=== PATIENT | female | born 1990 | race American Indian/Alaskan Native ===

== ENCOUNTER 2017-11-03 04:09 | Emergency (ER) | payer BC, MEDICAID ==
[~2017-11-03] VITALS: Ht 154.9 cm; Wt 72.7 kg
[2017-11-03] MEDS ORDERED: ibuprofen tablet 400 MG TABLET PO ONE (05:20)
[2017-11-03] MEDS ORDERED: LORA-269 PO (05:23)
[2017-11-03] MEDS ORDERED: IBUP-1984 PO (05:23)
[2017-11-03 05:34] VITALS: BP 115/60
[2017-11-10] MEDS ORDERED: FAMO-128 PO (01:20)
== END 2017-11-03 05:46 | disposition home or self-care (01) ==
LOC: ER 04:10
DX: R07.89 Other chest pain (principal); F41.9 Anxiety disorder, unspecified; E78.00 Pure hypercholesterolemia, unspecified; F17.210 Nicotine dependence, cigarettes, uncomplicated
CPT/HCPCS: 71045; 93005; 99284

== ENCOUNTER 2018-03-27 14:45 | Emergency (ER) | payer MEDICAID ==
[~2018-03-27] VITALS: Ht 154.9 cm; Wt 74.5 kg
[~2018-03-27 14:45] MED LIST: FAMO-128 PO; LORA-269 PO
[2018-03-27 15:10] LABS: BASOPHILS % (AUTO) 0.5 % (0-1); EOSINOPHILS # (AUTO) 0.1 X10'3 (0-0.9); EOSINOPHILS % (AUTO) 1.1 % (0-6); HEMATOCRIT 37.5 % (35.0-45.0); LYMPHOCYTES # (AUTO) 2.7 X10'3 (1.1-4.8); LYMPHOCYTES % (AUTO) 33.1 % (21-51); MEAN CORPUSCULAR HEMOGLOBIN 30.3 PG (27.0-31.0); MEAN CORPUSCULAR HGB CONC 34.8 % (33.0-36.5); MEAN CORPUSCULAR VOLUME 87.1 FL (78-98); MEAN PLATELET VOLUME 8.5 FL (7.4-10.4); MONOCYTES # (AUTO) 0.5 X10'3 (0-0.9); MONOCYTES % (AUTO) 5.6 % (2-12); NEUTROPHILS # (AUTO) 4.9 X10'3 (1.8-7.7); NEUTROPHILS % (AUTO) 59.7 % (42-75); PLATELET COUNT 264 X10'3 (140-440); RED BLOOD COUNT 4.31 X10'6 (4.20-5.60); RED CELL DISTRIBUTION WIDTH 12.3 % (11.5-14.5); WHITE BLOOD COUNT 8.2 X10'3 (4.5-11.0)
[2018-03-27 15:20] LABS: INR 0.9 INR; PROTHROMBIN TIME 9.8 SECONDS (9.0-12.0)
[2018-03-27 15:22] LABS: URINE HCG NEGATIVE (NEG)
[2018-03-27 15:25] LABS: ALANINE AMINOTRANSFERASE 41 U/L (12-78); ALBUMIN 4.4 G/DL (3.4-5.0); ALBUMIN/GLOBULIN RATIO 1.3 (1.1-1.5); ALKALINE PHOSPHATASE 89 IU/L (46-116); ANION GAP 11 (8-16); ASPARTATE AMINO TRANSFERASE 18 U/L (10-37); BILIRUBIN,TOTAL 0.2 MG/DL (0.1-1.0); BLOOD UREA NITROGEN 17 MG/DL (7-18); BUN/CREATININE RATIO 18.7 (6.6-38.0); CALCIUM 8.8 MG/DL (8.5-10.1); CHLORIDE 104 MMOL/L (99-107); CREATININE 0.91 MG/DL (0.40-0.90); GLUCOSE 109 MG/DL (70-104); POTASSIUM 4.1 MMOL/L (3.5-5.1); SODIUM 137 MMOL/L (135-145); TOTAL CARBON DIOXIDE 22.2 MMOL/L (24-32); TOTAL PROTEIN 7.8 G/DL (6.4-8.2); eGFR 74 ML/MIN
[2018-03-27 15:25] LABS: CLARITY,URINE CLEAR (Clear); COLOR,URINE YELLOW (Yellow); GLUCOSE, URINE NEGATIVE (Neg); KETONES,URINE NEGATIVE (Neg); LEUKOCYTE ESTERASE ,URINE NEGATIVE (Neg); NITRITES, URINE NEGATIVE (Neg); OCCULT BLOOD,URINE TRACE-LYSED (Neg); PROTEIN,URINE NEGATIVE (Neg); UROBILINOGEN,URINE 0.2 E.U/dL (0.2-1.0)
[2018-03-27 15:29] LABS: UA COLLECTION TYPE CLN CATCH MIDSTREAM
[2018-03-27 15:30] LABS: BACTERIA,URINE NONE SEEN /HPF (Neg); MUCUS STRANDS FEW /LPF (Neg); SQUAMOUS EPITHELIAL CELL,UR FEW /LPF (FEW); WBC,URINE NONE SEEN /HPF (0-4)
[2018-03-27 16:00] VITALS: BP 118/60
== END 2018-03-27 16:13 | disposition home or self-care (01) ==
LOC: ER 14:46
DX: R10.30 Lower abdominal pain, unspecified (principal); E78.00 Pure hypercholesterolemia, unspecified; Z90.89 Acquired absence of other organs
CPT/HCPCS: 36415; 80053; 81001; 81025; 85025; 85610; 99284

== ENCOUNTER 2019-01-12 01:31 | Emergency (ER) | payer MEDICAID ==
[~2019-01-12] VITALS: Ht 154.9 cm; Wt 62.0 kg
[2019-01-12 02:02] LABS: CLARITY,URINE CLEAR (Clear); COLOR,URINE YELLOW (Yellow); GLUCOSE, URINE NEGATIVE (Neg); KETONES,URINE NEGATIVE (Neg); LEUKOCYTE ESTERASE ,URINE NEGATIVE (Neg); NITRITES, URINE NEGATIVE (Neg); OCCULT BLOOD,URINE NEGATIVE (Neg); PROTEIN,URINE NEGATIVE (Neg); URINE HCG NEGATIVE (NEG); UROBILINOGEN,URINE 0.2 E.U/dL (0.2-1.0)
[2019-01-12 02:04] LABS: UA COLLECTION TYPE CLN CATCH MIDSTREAM
[2019-01-12 02:05] LABS: BASOPHILS # (AUTO) 0.1 X10'3 (0-0.2); BASOPHILS % (AUTO) 0.6 % (0-1); EOSINOPHILS # (AUTO) 0.1 X10'3 (0-0.9); EOSINOPHILS % (AUTO) 1.1 % (0-6); HEMATOCRIT 34.7 % (35.0-45.0); LYMPHOCYTES # (AUTO) 4.3 X10'3 (1.1-4.8); LYMPHOCYTES % (AUTO) 43.7 % (21-51); MEAN CORPUSCULAR HEMOGLOBIN 30.6 PG (27.0-31.0); MEAN CORPUSCULAR HGB CONC 34.5 g/dL (33.0-36.5); MEAN CORPUSCULAR VOLUME 88.8 FL (78-98); MEAN PLATELET VOLUME 9.3 FL (7.4-10.4); MONOCYTES # (AUTO) 0.7 X10'3 (0-0.9); MONOCYTES % (AUTO) 6.7 % (2-12); NEUTROPHILS # (AUTO) 4.7 X10'3 (1.8-7.7); NEUTROPHILS % (AUTO) 47.9 % (42-75); PLATELET COUNT 258 X10'3 (140-440); RED BLOOD COUNT 3.91 X10'6 (4.20-5.60); RED CELL DISTRIBUTION WIDTH 12.7 % (11.5-14.5); WHITE BLOOD COUNT 9.9 X10'3 (4.5-11.0)
[2019-01-12 02:16] LABS: ALANINE AMINOTRANSFERASE 37 U/L (12-78); ALBUMIN 4.3 G/DL (3.4-5.0); ALBUMIN/GLOBULIN RATIO 1.3 (1.1-1.5); ALKALINE PHOSPHATASE 97 IU/L (46-116); ANION GAP 8 (8-16); ASPARTATE AMINO TRANSFERASE 20 U/L (10-37); BILIRUBIN,TOTAL 0.3 MG/DL (0.1-1.0); BLOOD UREA NITROGEN 17 MG/DL (7-18); BUN/CREATININE RATIO 19.1 (6.6-38.0); CALCIUM 9.2 MG/DL (8.5-10.1); CHLORIDE 103 MMOL/L (99-107); CREATININE 0.89 MG/DL (0.40-0.90); GLUCOSE 89 MG/DL (70-104); LIPASE 121 U/L (73-393); SODIUM 136 MMOL/L (135-145); TOTAL CARBON DIOXIDE 25.5 MMOL/L (24-32); TOTAL PROTEIN 7.6 G/DL (6.4-8.2); eGFR 76 ML/MIN
[2019-01-12] MEDS: ibuprofen tablet 400 MG TABLET PO ONE (02:18)
[2019-01-12] MEDS: acetaminophen 325mg tablet PO ONE (02:18)
[2019-01-12] MEDS ORDERED: ACET-812 PO (02:25)
[2019-01-12] MEDS ORDERED: IBUP-1984 PO (02:25)
[2019-01-12 02:31] VITALS: BP 100/60
== END 2019-01-12 02:32 | disposition home or self-care (01) ==
LOC: ER 01:31
DX: R10.11 Right upper quadrant pain (principal); M79.18 Myalgia, other site; E78.00 Pure hypercholesterolemia, unspecified; Z90.89 Acquired absence of other organs
CPT/HCPCS: 36415; 80053; 81003; 81025; 83690; 85025; 85610; 99283

== ENCOUNTER 2019-04-04 03:20 | Emergency (ER) | payer MEDICAID ==
[~2019-04-04] VITALS: Ht 154.9 cm; Wt 63.6 kg
[~2019-04-04 03:20] MED LIST changes: +ACET-812 PO
[2019-04-04 04:04] VITALS: BP 104/52
[2019-04-04] MEDS ORDERED: sucralfate 1gm/10ml UD suspension PO STA (04:34)
[2019-04-04] MEDS ORDERED: mag hydrox/Alum hydrox/simeth 30ml oral suspension PO ONE (04:35)
[2019-04-04] MEDS ORDERED: LIDOcaine Viscous 15ml cup PO ONE (04:35)
[2019-04-04] MEDS ORDERED: DEXL60CA3 PO (04:39)
[2019-04-04] MEDS ORDERED: SUCR1TAB34 PO (04:42)
== END 2019-04-04 04:57 | disposition home or self-care (01) ==
LOC: ER 03:21
DX: K21.9 Gastro-esophageal reflux disease without esophagitis (principal); E78.00 Pure hypercholesterolemia, unspecified
CPT/HCPCS: 93005; 99284

== ENCOUNTER 2019-06-21 23:13 | Emergency (ER) | payer MEDICAID ==
[~2019-06-21] VITALS: Ht 154.9 cm; Wt 82.2 kg
[~2019-06-21 23:13] MED LIST changes: +DEXL60CA3 PO; +SUCR1TAB34 PO
[2019-06-22] MEDS ORDERED: PENI500T2 PO (00:38)
[2019-06-22 01:26] VITALS: BP 118/32
== END 2019-06-22 01:21 | disposition home or self-care (01) ==
LOC: ER 23:14
DX: J02.9 Acute pharyngitis, unspecified (principal); E78.00 Pure hypercholesterolemia, unspecified; Z90.89 Acquired absence of other organs; Z79.899 Other long term (current) drug therapy
CPT/HCPCS: 87081; 87880; 99283

== ENCOUNTER 2019-08-27 09:30 | Emergency (ER) | payer MEDICAID ==
[~2019-08-27] VITALS: Ht 154.9 cm; Wt 69.0 kg
[2019-08-27 09:34] VITALS: BP 111/47
--- NOTE | 2019-08-27 10:36 | NUR ---
5, PARA 1
[2019-08-27 10:57] LABS: CLARITY,URINE SLIGHTLY CLOUDY (Clear); COLOR,URINE YELLOW (Yellow); GLUCOSE, URINE NEGATIVE (Neg); KETONES,URINE 15 mg/dl (Neg); LEUKOCYTE ESTERASE ,URINE LARGE (Neg); NITRITES, URINE NEGATIVE (Neg); OCCULT BLOOD,URINE LARGE (Neg); PROTEIN,URINE NEGATIVE (Neg); UROBILINOGEN,URINE 0.2 E.U/dL (0.2-1.0)
[2019-08-27 11:00] LABS: UA COLLECTION TYPE CLN CATCH MIDSTREAM
[2019-08-27 11:03] LABS: MUCUS STRANDS FEW /LPF (Neg); SQUAMOUS EPITHELIAL CELL,UR MANY /LPF (FEW); WBC,URINE 50-100 /HPF (0-4)
[2019-08-27 11:04] LABS: URINE HCG POSITIVE (NEG)
[2019-08-27 11:05] LABS: BACTERIA,URINE 1+ /HPF (Neg)
[2019-08-27] MEDS ORDERED: cephalexin 250mg capsule PO ONE (11:30)
--- NOTE | 2019-08-27 12:08 | NUR ---
ultrasound at bedside
[2019-08-27] MEDS ORDERED: CEPH500C5 PO (12:38)
== END 2019-08-27 12:51 | disposition home or self-care (01) ==
LOC: ER 09:31
DX: O20.0 Threatened abortion (principal); O23.41 Unspecified infection of urinary tract in pregnancy, first trimester; O99.611 Diseases of the digestive system complicating pregnancy, first trimester; K21.9 Gastro-esophageal reflux disease without esophagitis; O99.331 Smoking (tobacco) complicating pregnancy, first trimester; F17.210 Nicotine dependence, cigarettes, uncomplicated; O26.891 Other specified pregnancy related conditions, first trimester; E78.00 Pure hypercholesterolemia, unspecified; Z3A.01 Less than 8 weeks gestation of pregnancy; Z79.899 Other long term (current) drug therapy
CPT/HCPCS: 76817; 81001; 81025; 99284

== ENCOUNTER 2023-12-03 11:14 | Emergency (ER) | payer MEDICAID ==
[~2023-12-03] VITALS: Ht 162.6 cm; Wt 70.0 kg
[2023-12-03 12:07] LABS: BASOPHILS % (AUTO) 0.3 % (0-1); EOSINOPHILS % (AUTO) 0.4 % (0-6); HEMATOCRIT 38.4 % (35.0-45.0); HEMOGLOBIN 13.1 g/dl (12.0-16.0); LYMPHOCYTES # (AUTO) 0.3 X10'3 (1.1-4.8); MEAN CORPUSCULAR HEMOGLOBIN 30.2 PG (27.0-31.0); MEAN CORPUSCULAR HGB CONC 34.1 g/dL (33.0-36.5); MEAN CORPUSCULAR VOLUME 88.7 FL (78-98); MEAN PLATELET VOLUME 8.8 FL (7.4-10.4); MONOCYTES # (AUTO) 0.4 X10'3 (0-0.9); MONOCYTES % (AUTO) 5.8 % (2-12); NEUTROPHILS # (AUTO) 6.6 X10'3 (1.8-7.7); NEUTROPHILS % (AUTO) 89.5 % (42-75); PLATELET COUNT 214 X10'3 (140-440); RED BLOOD COUNT 4.33 X10'6 (4.20-5.60); RED CELL DISTRIBUTION WIDTH 12.7 % (11.5-14.5); WHITE BLOOD COUNT 7.4 X10'3 (4.5-11.0)
[2023-12-03 12:18] LABS: ALANINE AMINOTRANSFERASE 50 U/L (12-78); ALBUMIN 4.2 G/DL (3.4-5.0); ALBUMIN/GLOBULIN RATIO 1.1 (1.1-1.5); ALKALINE PHOSPHATASE 68 IU/L (46-116); ANION GAP 9 (8-16); ASPARTATE AMINO TRANSFERASE 26 U/L (10-37); BILIRUBIN,TOTAL 0.4 MG/DL (0.1-1.0); BLOOD UREA NITROGEN 14 MG/DL (7-18); BUN/CREATININE RATIO 15.1 (10.0-20.0); CALCIUM 8.9 MG/DL (8.5-10.1); CHLORIDE 103 MMOL/L (99-107); CREATININE 0.93 MG/DL (0.40-0.90); GLUCOSE 100 MG/DL (70-104); POTASSIUM 4.4 MMOL/L (3.5-5.1); SODIUM 137 MMOL/L (135-145); TOTAL CARBON DIOXIDE 25.2 MMOL/L (24-32); TOTAL PROTEIN 7.9 G/DL (6.4-8.2); eCRCL 75 ML/MIN; eGFR 70 ML/MIN
[2023-12-03 12:25] LABS: PRO BRAIN NATRIURETIC PEPTIDE 213 PG/ML (0-125)
[2023-12-03 13:35] VITALS: TEMP 101.7
[2023-12-03] MEDS: normal saline 1000ml 1,000 ML IV ONE (14:19)
[2023-12-03 15:28] VITALS: BP 124/68; PULSE 133; RESP 22; O2SAT 98
[2023-12-03 15:44] LABS: URINE HCG NEGATIVE (NEG)
[2023-12-03 15:56] LABS: BILIRUBIN,URINE NEGATIVE (Neg); CLARITY,URINE CLEAR (Clear); COLOR,URINE YELLOW (Yellow); GLUCOSE, URINE NEGATIVE (Neg); KETONES,URINE NEGATIVE (Neg); LEUKOCYTE ESTERASE ,URINE NEGATIVE (Neg); NITRITES, URINE NEGATIVE (Neg); OCCULT BLOOD,URINE SMALL (Neg); PH,URINE 5.5 (4.8-8.0); PROTEIN,URINE NEGATIVE (Neg); UROBILINOGEN,URINE 0.2 E.U/dL (0.2-1.0)
[2023-12-03 16:06] LABS: UA COLLECTION TYPE NON-SPECIFIED; WBC,URINE 0-4 /HPF (0-4)
[2023-12-03 16:07] LABS: BACTERIA,URINE FEW /HPF (Neg); MUCUS STRANDS MANY /LPF (Neg); SQUAMOUS EPITHELIAL CELL,UR MANY /LPF (FEW)
== END 2023-12-03 15:35 | disposition home or self-care (01) ==
LOC: ER 11:15
DX: U07.1 COVID-19 (principal); B34.9 Viral infection, unspecified; E78.00 Pure hypercholesterolemia, unspecified; K21.9 Gastro-esophageal reflux disease without esophagitis; F17.210 Nicotine dependence, cigarettes, uncomplicated; Z79.899 Other long term (current) drug therapy; Z79.1 Long term (current) use of non-steroidal anti-inflammatories (NSAID)
CPT/HCPCS: 36415; 71045; 80053; 81001; 81025; 83880; 84484; 85025; 87502; 87503; 87811; 93005; 96360; 99285; J7030

== ENCOUNTER 2025-04-15 12:19 | Emergency (ER) | payer MEDICAID ==
[~2025-04-15] VITALS: Ht 154.9 cm; Wt 83.3 kg
--- NOTE | 2025-04-15 13:34 | Physician Documentation ---
History of Present Illness General Chief Complaint: Vomiting w/diarrhea Stated Complaint: VOMITING Time Seen by MD: 13:22 Primary Medical Doctor: DR. MARY METZ; [place] History of Present Illness Initial Comments The patient is a 35-year-old female with no significant past medical history who presents with three days of nausea, vomiting and diarrhea. She has not been passing blood. She did go to [facility] yesterday and was discharged with a prescription for Zofran ODT. She took this this morning and vomited about 10 minutes later so decided to come here. Medication Reconciliation Allergies: Coded Allergies: No Known Allergies (Unverified , 04/15/25) Scheduled Acetaminophen (Tylenol Extra Strength), 2 TABLET PO Q6H Dexlansoprazole (Dexilant), 1 CAP PO DAILY Famotidine (Pepcid), 1 TAB PO Q12H Sucralfate (Carafate), 1 TAB PO ACHS Scheduled PRN Lorazepam (Ativan), 1 TAB PO Q8H PRN for an Past Medical History Past Medical History: Headache, High Cholesterol, GERD Past Surgical History: tonsillectomy Smoking: Cigarettes Alcohol Use: Rarely Drug Use: none Lives In: Home Review of Systems ROS Constitutional: Denies chills, fatigue, fever, weight gain or weight loss. HEENT: Denies hearing loss, sinus pressure or visual changes. Respiratory: Denies cough, shortness of breath or wheezing. Cardiovascular: Denies chest pain, pain while walking (claudication), edema or palpitations. Gastrointestinal: Nausea, vomiting and diarrhea Genitourinary: Denies painful urination (dysuria), excessive amount of urine (polyuria) or urinary frequency. Metabolic/Endocrine: Denies cold intolerance, heat intolerance, excessive thirst (polydipsia) or excessive hunger (polyphagia). Neurological: Denies dizziness, extremity numbness, extremity weakness, headaches, seizures or tremors. Psychiatric: Denies anxiety or depression. Integumentary: Denies breast discharge, breast lump, hives, mole change(s), rash or skin lesion. Musculoskeletal: Denies back pain, joint pain, joint swelling or neck pain. Hematologic: Denies easily bleeding, easily bruises, lymphedema or issues with blood clots. Immunologic: Denies food allergies or seasonal allergies. Physical Exam Physical Exam Vital Signs: Temperature: 97.7, Source: Oral, Heart Rate: 71, Respiratory Rate: 18, BP: 117/69, Pulse Oximetry: 98, Weight: 83.300 Physical Exam Physical Exam Vitals and nursing note reviewed. Constitutional: General: Patient is awake, alert, oriented x 4 in no acute distress and well appearing. Speech is clear and lucid. Appearance: Overweight. Patient is not ill-appearing, toxic-appearing or diaphoretic. HENT: Head: Normocephalic and atraumatic. Mouth/Throat: Mouth: Mucous membranes are moist. Pharynx: Oropharynx is clear. Eyes: General: No scleral icterus. Extraocular Movements: Extraocular movements intact. Pupils: Pupils are equal, round, and reactive to light. Neck: Supple, no Kernig or Brudzinski sign. Cardiovascular: Rate and Rhythm: Normal rate and regular rhythm. Heart sounds: No murmur heard. Pulmonary: Effort: No respiratory distress. Breath sounds: No wheezing, rhonchi or rales. Abdominal: General: There is no distension. Palpations: There is no fluid wave, hepatomegaly or mass. Tenderness: There is no abdominal tenderness. There is no guarding. Musculoskeletal: General: No swelling or deformity. Skin: Coloration: Skin is not jaundiced. Findings: No erythema or rash. Neurological: Mental Status: Patient is alert. Progress Results/Orders Results/Orders Orders - MONEA ANN MD Covid19 Binax Poc Result Entry (04/15/25 13:29) Completed Orders - MONAE ANN MD CMP (04/15/25 13:29) Cbc/Diff (04/15/25 13:29) Hcg Serum Qt (04/15/25 13:29) LA (04/15/25 13:29) Lipase (04/15/25 13:29) MG (04/15/25 13:29) Normal Saline 1000ml (0.9% Sodium Chlori (04/15/25 13:30) Ondansetron Inj. (Zofran 4mg/2ml Vial) (04/15/25 13:30) Ua W/Microscopic, Cult If Ind (04/15/25 14:31) Medications Received in ER Medications (Trade) Dose Ordered Sig/Riddhi Route PRN Reason Start Time Stop Time Status Last Admin Dose Admin Sodium Chloride 1,000 ml @ 1,000 mls/hr ONCE ONCE IV 04/15/25 13:30 04/15/25 14:29 DC 04/15/25 13:38 1,000 MLS/HR (Zofran 4mg/2ml vial) 4 mg ONCE ONCE IV 04/15/25 13:30 04/15/25 13:31 DC 04/15/25 13:38 4 MG Vital Signs 04/15/25 04/15/25 04/15/25 04/15/25 12:43 13:43 13:43 15:38 Temp 97.7 Pulse 71 93 100 Resp 18 17 17 17 B/P (MAP) 117/69 140/69 (92) 116/75 (89) Pulse Ox 98 98 97 O2 Flow Rate 0 0 Laboratory Tests Test 04/15/25 13:38 04/15/25 13:42 04/15/25 14:31 White Blood Count 10.6 Red Blood Count 4.58 Hemoglobin 13.4 Hematocrit 39.3 Mean Corpuscular Volume 85.6 Mean Corpuscular Hemoglobin 29.2 Mean Corpuscular Hemoglobin Concent 34.1 Red Cell Distribution Width 12.7 Platelet Count 310 Mean Platelet Volume 8.8 Neutrophils (%) (Auto) 82.8 H Lymphocytes (%) (Auto) 11.0 L Monocytes (%) (Auto) 5.2 Eosinophils (%) (Auto) 0.3 Basophils (%) (Auto) 0.7 Neutrophils # (Auto) 8.8 H Lymphocytes # (Auto) 1.2 Monocytes # (Auto) 0.6 Eosinophils # (Auto) 0.0 Basophils # (Auto) 0.1 CBC Comment Sodium Level 139 Potassium Level 3.8 Chloride Level 103 Carbon Dioxide Level 24.8 Anion Gap 11 Blood Urea Nitrogen 16 Creatinine 0.91 H Estimated GFR/1.73 m2 71 BUN/Creatinine Ratio 17.6 Glucose Level 94 Lactic Acid Level 1.0 Calcium Level 8.8 Magnesium Level 2.1 Total Bilirubin 0.7 Aspartate Amino Transf (AST/SGOT) 38 H Alanine Aminotransferase (ALT/SGPT) 65 Alkaline Phosphatase 85 Total Protein 8.3 H Albumin 4.4 Globulin 3.9 Albumin/Globulin Ratio 1.1 Lipase 25 HCG Beta Subunit < 1.0 Chemistry Comments SARS-CoV-2 Antigen (Rapid) Negative Urine Specimen Description Cln catch midstream Urine Color Dark yellow Urine Clarity Slightly cloudy Urine pH 6.0 Urine Specific [place] 1.025 Urine Protein Trace Urine Glucose (UA) Negative Urine Ketones Trace H Urine Occult Blood Negative Urine Nitrite Negative Urine Bilirubin Moderate Urine Urobilinogen 1.0 Urine Leukocyte Esterase Trace H Urine RBC 0-2 Urine WBC 5-10 H Urine Squamous Epithelial Cells Many Urine Bacteria 3+ Urine Mucus Many Urine Culture Indicated Rejected for culture Volume Urine Centrifuged 10 ml Urine Comment Medical Decision Making Findings This 35-year-old lady presented with nausea, vomiting and diarrhea. I have treated her symptomatically in the emergency department. Laboratory data are reassuring. She has improved and would like to go home. Departure Disposition: HOME / SELF CARE / HOMELESS Impression: Primary Impression: Nausea vomiting and diarrhea Condition: Stable Additional Instructions: You have been evaluated for nausea, vomiting and diarrhea. Fortunately, your laboratory studies are reassuring and you have improved while in the emergency department. Please continue to use Zofran at home and stay well hydrated with Pedialyte or another electrolyte replenishing solution. In the meantime, return here for worsening symptoms or new/unusual symptoms. Referrals: NO PRIMARY CARE PROVIDER (PCP) Education Educated: Patient Educated regarding: diagnosis, treatment, prognosis, need for follow up Signature Scribe Signature: . Attestation: . MONAE ANN MD Apr 15, 2025 13:34
[2025-04-15] MEDS: normal saline 1000ml 1,000 ML IV ONE (13:38)
[2025-04-15] MEDS: ondansetron/PF 4mg/2ml inj IV ONE (13:38)
[2025-04-15 14:02] LABS: MEAN PLATELET VOLUME 8.8 FL (7.4-10.4); RED CELL DISTRIBUTION WIDTH 12.7 % (11.5-14.5)
[2025-04-15 14:20] LABS: CREATININE 0.91 MG/DL (0.40-0.90); TOTAL CARBON DIOXIDE 24.8 MMOL/L (24-32); eCRCL 66 ML/MIN; eGFR 71 ML/MIN
[2025-04-15 15:22] LABS: LEUKOCYTE ESTERASE ,URINE TRACE (Neg); NITRITES, URINE NEGATIVE (Neg); OCCULT BLOOD,URINE NEGATIVE (Neg)
[2025-04-15 15:28] LABS: UA COLLECTION TYPE CLN CATCH MIDSTREAM
[2025-04-15 15:32] LABS: MUCUS STRANDS MANY /LPF (Neg); SQUAMOUS EPITHELIAL CELL,UR MANY /LPF (FEW)
[2025-04-15 17:37] VITALS: BP 114/64; PULSE 97; RESP 16; TEMP 98; O2SAT 97
== END 2025-04-15 17:39 | disposition home or self-care (01) ==
LOC: ER 12:20
DX: R11.2 Nausea with vomiting, unspecified (principal); R19.7 Diarrhea, unspecified; E78.00 Pure hypercholesterolemia, unspecified; K21.9 Gastro-esophageal reflux disease without esophagitis; F17.210 Nicotine dependence, cigarettes, uncomplicated; Z90.89 Acquired absence of other organs; Z79.899 Other long term (current) drug therapy; Z20.822 Contact with and (suspected) exposure to COVID-19
CPT/HCPCS: 36415; 80053; 81001; 83605; 83690; 83735; 84702; 85025; 87811; 96361; 96374; 99283; J2405; J7030